=== PATIENT | female | born 1995 | race Caucasian/White ===

== ENCOUNTER 2019-10-27 03:02 | Emergency (ER) | payer SELFPAY ==
[~2019-10-27] VITALS: Ht 162.6 cm; Wt 75.7 kg
[2019-10-27 03:18] VITALS: Ht 162.6 cm; Wt 75.7 kg
[2019-10-27 04:23] LABS: CALCIUM 8.5 mg/dL (8.5-10.1); CARBON DIOXIDE 27.5 mmol/L (21-32); CHLORIDE SERUM 108 mmol/L (98-107); CREATININE SERUM 0.6 mg/dL (0.6-1.0); GFR1 > 60 mL/min; GLUCOSE SERUM 141 mg/dL (74-106); SODIUM SERUM 141 mmol/L (136-145)
[2019-10-27 04:41] LABS: BASOPHIL % 0.3 % (0-2); PLATELET COUNT 259 x10^3mcL (130-400)
[2019-10-27 06:32] VITALS: BP 118/77
== END 2019-10-27 06:32 | disposition home or self-care (01) ==
LOC: ED 03:02
PROVIDERS: Emergency Medicine
DX: N39.0 Urinary tract infection, site not specified (principal)
CPT/HCPCS: 36415; 87491; 87591; J1885; Q0092